=== PATIENT | female | born 1980 | race Caucasian/White ===

== ENCOUNTER 2019-02-19 09:50 | Emergency (ER) | payer BC ==
[2019-02-19 10:26] VITALS: BP 123/89; PULSE 90
[2019-02-19] MEDS ORDERED: Lidocaine 1% 10 ML MDV INJECT ONE (11:23)
--- NOTE | 2019-02-19 11:26 | EDM.PDOC ---
ED HPI GENERAL MEDICAL PROBLEM - General Chief Complaint: Laceration Stated Complaint: FINGER LAC Time Seen by Provider: 02/19/19 11:09 Source of Information: Reports: Patient History Limitations: Reports: No Limitations - History of Present Illness INITIAL COMMENTS - FREE TEXT/NARRATIVE: Patient is a 38-year-old female who presents to the ED complaining of a laceration to the second finger distal phalanx of the left hand. Patient was utilizing a kitchen knife when she accidentally cut herself. Laceration did bleed quite a bit but was controlled with direct pressure. She has no sensorimotor deficits. Tetanus status is up-to-date. She offers no additional complaints. Left Finger-Index Pain Score (Numeric/FACES): 3 - Related Data Allergies Allergy/AdvReac Type Severity Reaction Status Date / Time No Known Allergies Allergy Verified 02/19/19 10:26 Home Meds: Home Meds Ferrous Sulfate [Iron] 1 cap PO DAILY 03/01/16 [History] Fexofenadine HCl [Marj Allergy] 1 tab PO DAILY 03/01/16 [History] Folic Acid 4 mg PO DAILY 03/01/16 [History] Levothyroxine Sodium 75 mcg PO DAILY 03/01/16 [History] Mometasone Furoate [Nasonex [place]] 1 spray NASBOTH DAILY 03/01/16 [History] Montelukast [Singulair] 10 mg PO DAILY 03/01/16 [History] carBAMazepine [TEGretol XR] 400 mg PO BID 03/01/16 [History] Acetaminophen/oxyCODONE [Percocet 325-5 MG] 2 tab PO Q4H PRN #30 tablet [Rx] Past Medical History Neurological History: Reports: Seizure - Past Surgical History Female Surgical History: Reports: Section, Other (See Below) Social & Family History - Tobacco Use Smoking Status *Q: Never Smoker - Caffeine Use Caffeine Use: Reports: None - Recreational Drug Use Recreational Drug Use: No ED ROS GENERAL - Review of Systems Review Of Systems: ROS reveals no pertinent complaints other than HPI. ED EXAM, SKIN/RASH Exam: See Below Text/Narrative:: See Procedure note. Exam Limited By: No Limitations General Appearance: Alert, WD/WN, No Apparent Distress Ears: Hearing Grossly Normal Nose: Normal Inspection Throat/Mouth: Normal Voice, No Airway Compromise Neck: Normal Inspection, Supple Respiratory/Chest: No Respiratory Distress, No Accessory Muscle Use Cardiovascular: Normal Peripheral Pulses, Regular Rate, Rhythm Neurological: Alert, Oriented, Normal Cognition, No Motor/Sensory Deficits Psychiatric: Normal Affect, Normal Mood Skin: Warm, Dry ED SKIN PROCEDURES - Laceration/Wound Repair Left Medial Distal Digit - 2nd (Index) Appearance: Subcutaneous, Clean Distal NVT: Neuro & Vascular Intact, No Tendon Injury Anesthetic Type: Local Local Anesthesia - Lidocaine (Xylocaine): 1% Plain Local Anesthetic Volume: 3cc Skin Prep: Chlorhexidine (Hibiciens), Saline, Sterile Drape Exploration/Debridement/Repair: Wound Explored, In a Bloodless Field, Explored to Base, No Foreign Material Found Closed with: Sutures Lac/Wound length In cm: 1 Suture Size: 4-0 # of Sutures: 3 Suture Type: Prolene, Interrupted, Simple Drain Placement: No Sterile Dressing Applied: Nurse Tetanus Status Addressed: Yes Complications: No Course - Vital Signs Last Recorded V/S: Last Vital Signs Temp 97.9 F 02/19/19 10:21 Pulse 90 02/19/19 10:21 Resp 18 02/19/19 10:21 BP 123/89 02/19/19 10:21 Pulse Ox 100 02/19/19 10:21 - Orders/Labs/Meds Meds: Medications Discontinued Medications Generic Name Dose Route Start Last Admin Trade Name Bryce PRN Reason Stop Dose Admin Lidocaine HCl 10 ml 02/19/19 11:23 02/19/19 12:00 Xylocaine 1% INJECT 02/19/19 11:24 10 ml ONETIME ONE Administration - Re-Assessments/Exams Free Text/Narrative Re-Assessment/Exam: Ordered lidocaine 1%. Laceration closed no complications. Return precautions discussed with the patient. She had no further questions or concerns. Discharge instructions as documented. Departure - Departure Time of Disposition: 11:25 Disposition: Home, Self-Care 01 Condition: Good Clinical Impression: Laceration of finger of left hand Qualifiers: Encounter type: initial encounter Finger: index finger Damage to nail status: without damage Foreign body presence: without foreign body Qualified Code(s): S61.211A - Laceration without foreign body of left index finger without damage to nail, initial encounter - Discharge Information Instructions: Laceration Care, Adult, Stitches, Richi, or Adhesive Wound Closure Referrals: Kirti Wei MD [Primary Care Provider] - Forms: ED Department Discharge Additional Instructions: Cleanse site twice daily, PAT dry, reapply bacitracin ointment. Keep area clean and dry. Do not soak wound. Followup with a provider at [facility] in 10 days for suture removal free of charge. Return back to the ED for increased redness, increased swelling, or purulent drainage.
== END 2019-02-19 12:00 | disposition home or self-care (01) ==
LOC: JD.ED 09:50
DX: S61.211A Laceration without foreign body of left index finger without damage to nail, initial encounter (principal); Z79.899 Other long term (current) drug therapy; W26.0XXA Contact with knife, initial encounter; Y92.000 Kitchen of unspecified non-institutional (private) residence as the place of occurrence of the external cause
CPT/HCPCS: 12001; 99282; J2001